=== PATIENT | male | born 1970 | race Two or more races ===

== ENCOUNTER 2024-07-28 17:49 | Inpatient (IN) | payer MEDICAID, SELFPAY ==
[2024-07-28 17:50] VITALS: BMI 26.1
--- NOTE | 2024-07-28 18:28 | EKG_ITS ---
[facility] Test Date: 2024-07-28 Pat Name: JOSE ARRIAZA Department: Room: - Gender: Male Health Insurance Assessor: : 1970 Requested By: Romel Andrea Order Number: [id number] Reading MD: Romel Andrea Measurements Intervals Paia Rate: 81 P: 41 SC: 143 QRS: 26 QRSD: 84 T: 39 QT: 347 QTc: 404 Interpretive Statements SINUS RHYTHM No previous ECG available for comparison /store/S0/[id number]/[id number].pdf
[2024-07-28 18:35] VITALS: BP 146/90; PULSE 73; RESP 16; TEMP 36.6; O2SAT 98
--- NOTE | 2024-07-28 19:06 | XR_ITS ---
Examination: CT brain head without contrast. 2-D sagittal coronal reconstructions Date and time of exam:July 28, 2024 1908 hrs. Indications: Stroke alert, onset focal neurologic deficit left arm numbness and dizziness beginning 1800 hrs. CTDI: vol (mGy):53 DLP: (mGycm):1054 Technique: Multiple CT axial sections of the brain have been obtained, 5 mm slice thickness. Contrast has not been administered. 2-D sagittal, coronal reconstructions have been obtained Low dose protocols were performed. One or more of the following dose reduction techniques were used; automated exposure control, adjustment of the mA and/or KV according to patient size, use of iterative reconstruction technique. Findings: No significant ventricular enlargement. Intra-axial or extra-axial hemorrhage density is not seen. No mass effect or midline shift Basal cisterns are not remarkable. Fourth ventricle is midline. Cranial vault intact. Impression: Negative for acute hemorrhage, mass effect or midline shift Brain MRI follow-up would best assess for demyelinating disease, acute ischemic change
--- NOTE | 2024-07-28 19:07 | PD.EDRME ---
Rapid Medical Screening Exam [facility] [place] Arrival date/time: 07/28/24 17:49 53M with history of DM and HLD, as well as possible anxiety and TIA presents to ED with 1 hour of L upper extremity numbness as well as some some lower extremity weakness and blurry vision. Patient's also states he's been walking to one side. Chief Complaint: Neuro Symptoms/Deficit Vital signs: Vital Signs Temperature 98 F 07/28/24 18:35 Pulse Rate 73 07/28/24 18:35 Respiratory Rate 16 07/28/24 18:35 Blood Pressure 146/90 H 07/28/24 18:35 Pulse Oximetry (%) 98 07/28/24 18:35 Oxygen Delivery Method Room Air 07/28/24 18:35
--- NOTE | 2024-07-28 19:11 | PC.NURSE ---
nayan consult case # [id number]
[2024-07-28 19:38] VITALS: PULSE 79
--- NOTE | 2024-07-28 19:42 | ESCONSULT_ITS ---
Tele Neuro Consultation Consultation Date 07/28/24 Most Recent Vital Signs Last Vital Signs Temp 98 F 07/28/24 18:35 Pulse 79 07/28/24 19:38 Resp 16 07/28/24 18:35 BP 146/90 H 07/28/24 18:35 Pulse Ox 98 07/28/24 18:35 O2 Del Method Room Air 07/28/24 18:35 Consultation Narrative [facility] Tele[facility]urology Consult [facility] Patient Name:???oliva becker Date of :???1970 Date of Service:???07/28/2024 19:10:46 Diagnosis:?G45.9 - Transient cerebral ischemic attack, unspecified ?R51.9 - Headache, unspecified Impression: ?Mr. Becker had left arm numbness with vascular risk factors of DM and HLD. This is the most concerning symptom for TIA. He has vertigo symptoms and headache in the setting of ear infection/pain, which are likely related. I recommend a MRI brain to further evaluate posterior circulation ischemia possibility for vertigo and transient left arm numbness. He should start aspirin 325mg now, lipid panel, A1C. Our recommendations are outlined below. Recommendations: ? Stroke/Telemetry Floor ? Neuro Checks ? Bedside Swallow Eval ? DVT Prophylaxis ? IV Fluids, Normal Saline ? Head of Bed 30 Degrees ? Euglycemia and Avoid Hyperthermia (PRN Acetaminophen) ? Initiate or continue Aspirin 325 MG daily ? Antihypertensives PRN if Blood pressure is greater than 220/120 or there is a concern for End organ damage/contraindications for permissive HTN. If blood pressure is greater than 220/120 give labetalol PO or IV or Vasotec IV with a goal of 15% reduction in BP during the first 24 hours. Sign Out: ? Discussed with Emergency Department Provider Advanced Imaging: Advanced Imaging Deferred because: Non-disabling symptoms as verified by the patient; no cortical signs so not consistent with LVO Metrics: Last Known Well: 07/28/2024 15:30:00 Dispatch Time: 07/28/2024 19:10:46 Arrival Time: 07/28/2024 19:05:00 Initial Response Time: 07/28/2024 19:12:18Symptoms: dizzy. Initial patient interaction: 07/28/2024 19:18:12 NIHSS Assessment Completed: 07/28/2024 19:24:20Patient is not a candidate for Thrombolytic. Thrombolytic Medical Decision: 07/28/2024 19:24:21Patient was not deemed candidate for Thrombolytic because of following reasons: Resolved symptoms . I personally Reviewed the CT Head and it Showed no ICH Primary Provider Notified of Diagnostic Impression and Management Plan on: 07/28/2024 19:36:25 History of Present Illness:Patient is a 53 year old Male. Patient was brought by private transportation with symptoms of dizzy. 53 year old man who presents with sudden onset dizziness with recent left ear infection taking ear drops. He then noticed vertex head pain, SOB and left arm numbness. He is not having weakness, speech or language difficulty or vision loss. He takes medications for DM, HLD. Past Medical History: ?Diabetes Mellitus ?Hyperlipidemia Medications: No Anticoagulant use? No Antiplatelet use Reviewed EMR for current medications Allergies:? NKDA Social History: Patient Is: Smoking: No Family History: There is no family history of premature cerebrovascular disease pertinent to this consultation ROS : 14 Points Review of Systems was performed and was negative except mentioned in HPI. Past Surgical History: There Is No Surgical History Contributory To Today?s Visit Examination: BP(146/90),?Pulse(73),?Blood Glucose(120) 1A: Level of Consciousness - Alert; keenly responsive?+ 0 1B: Ask Month and Age - Both Questions Right?+ 0 1C: Blink Eyes & Squeeze Hands - Performs Both Tasks?+ 0 2: Test Horizontal Extraocular Movements - Normal?+ 0 3: Test Visual Sy - No Visual Loss?+ 0 4: Test Facial Palsy (Use Grimace if Obtunded) - Normal symmetry?+ 0 5A: Test Left Arm Motor Drift - No Drift for 10 Seconds?+ 0 5B: Test Right Arm Motor Drift - No Drift for 10 Seconds?+ 0 6A: Test Left Leg Motor Drift - No Drift for 5 Seconds?+ 0 6B: Test Right Leg Motor Drift - No Drift for 5 Seconds?+ 0 7: Test Limb Ataxia (FNF/Heel-Villatoro) - No Ataxia?+ 0 8: Test Sensation - Normal; No sensory loss?+ 0 9: Test Language/Aphasia - Normal; No aphasia?+ 0 10: Test Dysarthria - Normal?+ 0 11: Test Extinction/Inattention - No abnormality?+ 0 NIHSS Score:?0 Pre-Morbid Modified Jyoti Scale:0 Points = No symptoms at all Spoke with :?Dr Andrea This consult was conducted in real time using interactive audio and video technology. Patient was informed of the technology being used for this visit and agreed to proceed. Patient located in hospital and provider located at home/office setting. Patient is being evaluated for possible acute neurologic impairment and high probability of imminent or life-threatening deterioration. I spent total of 30 minutes providing care to this patient, including time for face to face visit via telemedicine, review of medical records, imaging studies and discussion of findings with providers, the patient and/or family. Dr Aniceto Garcia [facility] For Inpatient follow-up with [facility] physician please call [facility] at [phone]. As we are not an outpatient service for any post hospital discharge needs please contact the hospital for assistance. If you have any questions for the [facility] physicians or need to reconsult for clinical or diagnostic changes please contact us via [facility] at . [facility] Patient Name:???oliva becker Date of :???1970 Date of Service:???07/28/2024 19:10:46 Diagnosis:?G45.9 - Transient cerebral ischemic attack, unspecified ?R51.9 - Headache, unspecified Impression: ?Mr. Becker had left arm numbness with vascular risk factors of DM and HLD. This is the most concerning symptom for TIA. He has vertigo symptoms and headache in the setting of ear infection/pain, which are likely related. I recommend a MRI brain to further evaluate posterior circulation ischemia possibility for vertigo and transient left arm numbness. He should start aspirin 325mg now, lipid panel, A1C. Our recommendations are outlined below. Recommendations: ? Stroke/Telemetry Floor ? Neuro Checks ? Bedside Swallow Eval ? DVT Prophylaxis ? IV Fluids, Normal Saline ? Head of Bed 30 Degrees ? Euglycemia and Avoid Hyperthermia (PRN Acetaminophen) ? Initiate or continue Aspirin 325 MG daily ? Antihypertensives PRN if Blood pressure is greater than 220/120 or there is a concern for End organ damage/contraindications for permissive HTN. If blood pressure is greater than 220/120 give labetalol PO or IV or Vasotec IV with a goal of 15% reduction in BP during the first 24 hours. Sign Out: ? Discussed with Emergency Department Provider Advanced Imaging: Advanced Imaging Deferred because: Non-disabling symptoms as verified by the patient; no cortical signs so not consistent with LVO Metrics: Last Known Well: 07/28/2024 15:30:00 Dispatch Time: 07/28/2024 19:10:46 Arrival Time: 07/28/2024 19:05:00 Initial Response Time: 07/28/2024 19:12:18Symptoms: dizzy. Initial patient interaction: 07/28/2024 19:18:12 NIHSS Assessment Completed: 07/28/2024 19:24:20Patient is not a candidate for Thrombolytic. Thrombolytic Medical Decision: 07/28/2024 19:24:21Patient was not deemed candidate for Thrombolytic because of following reasons: Resolved symptoms . I personally Reviewed the CT Head and it Showed no ICH Primary Provider Notified of Diagnostic Impression and Management Plan on: 07/28/2024 19:36:25 History of Present Illness:Patient is a 53 year old Male. Patient was brought by private transportation with symptoms of dizzy. 53 year old man who presents with sudden onset dizziness with recent left ear infection taking ear drops. He then noticed vertex head pain, SOB and left arm numbness. He is not having weakness, speech or language difficulty or vision loss. He takes medications for DM, HLD. Past Medical History: ?Diabetes Mellitus ?Hyperlipidemia Medications: No Anticoagulant use? No Antiplatelet use Reviewed EMR for current medications Allergies:? NKDA Social History: Patient Is: Smoking: No Family History: There is no family history of premature cerebrovascular disease pertinent to this consultation ROS : 14 Points Review of Systems was performed and was negative except mentioned in HPI. Past Surgical History: There Is No Surgical History Contributory To Today?s Visit Examination: BP(146/90),?Pulse(73),?Blood Glucose(120) 1A: Level of Consciousness - Alert; keenly responsive?+ 0 1B: Ask Month and Age - Both Questions Right?+ 0 1C: Blink Eyes & Squeeze Hands - Performs Both Tasks?+ 0 2: Test Horizontal Extraocular Movements - Normal?+ 0 3: Test Visual Sy - No Visual Loss?+ 0 4: Test Facial Palsy (Use Grimace if Obtunded) - Normal symmetry?+ 0 5A: Test Left Arm Motor Drift - No Drift for 10 Seconds?+ 0 5B: Test Right Arm Motor Drift - No Drift for 10 Seconds?+ 0 6A: Test Left Leg Motor Drift - No Drift for 5 Seconds?+ 0 6B: Test Right Leg Motor Drift - No Drift for 5 Seconds?+ 0 7: Test Limb Ataxia (FNF/Heel-Villatoro) - No Ataxia?+ 0 8: Test Sensation - Normal; No sensory loss?+ 0 9: Test Language/Aphasia - Normal; No aphasia?+ 0 10: Test Dysarthria - Normal?+ 0 11: Test Extinction/Inattention - No abnormality?+ 0 NIHSS Score:?0 Pre-Morbid Modified Arenac Scale:0 Points = No symptoms at all Spoke with :?Dr Andrea This consult was conducted in real time using interactive audio and video technology. Patient was informed of the technology being used for this visit and agreed to proceed. Patient located in hospital and provider located at home/office setting. Patient is being evaluated for possible acute neurologic impairment and high probability of imminent or life-threatening deterioration. I spent total of 30 minutes providing care to this patient, including time for face to face visit via telemedicine, review of medical records, imaging studies and discussion of findings with providers, the patient and/or family. Dr Aniceto Garcia [facility] For Inpatient follow-up with [facility] physician please call [facility] at . As we are not an outpatient service for any post hospital discharge needs please contact the hospital for assistance. If you have any questions for the [facility] physicians or need to reconsult for clinical or diagnostic changes please contact us via [facility] at .
[2024-07-28 19:45] VITALS: BP 135/97; PULSE 75; RESP 20; O2SAT 97
[2024-07-28 19:46] LABS: Basophils % (Auto) 0 % (0-2.5); Eosinophils # (Auto) 0.1 Thou/mm3 (0.0-0.5); Eosinophils % (Auto) 1 % (0-10); Hematocrit 43.8 % (41.0-53.0); Hemoglobin 15.3 g/dL (13.5-16.0); Immature Granulocytes % (Auto) 0 % (0-0); Immature Granulocytes Auto 0.02 Thou/mm3 (0.00-0.00); Lymphocytes # (Auto) 1.5 Thou/mm3 (1.0-4.8); Lymphocytes % (Auto) 18 % (10-50); Mean Corpuscular HGB Conc 34.9 g/dl (31.0-37.0); Mean Corpuscular Hemoglobin 31.8 pg (25.0-35.0); Mean Corpuscular Volume 91 fL (80-100); Monocytes # (Auto) 0.4 Thou/mm3 (0.0-0.8); Monocytes % (Auto) 5 % (0-12); Neutrophils # (Auto) 6.1 Thou/mm3 (1.8-7.7); Neutrophils % (Auto) 76 % (37-80); Nucleated Red Blood Cell % 0 /100 WBC (0); Platelet Count 277 Thou/mm3 (140-440); RDW Standard Deviation 43.5 fL (35.1-43.9); Red Blood Count 4.81 Miln/mm3 (4.50-5.90); White Blood Count 8.1 Thou/mm3 (3.8-10.6)
[2024-07-28] MEDS: Aspirin 325 MG TABLET PO (19:52)
--- NOTE | 2024-07-28 19:55 | PD.EDNEURO ---
Neuro Symptoms Deficit-RME/HPI General Chief Complaint: Neuro Symptoms/Deficit Stated Complaint: LEFT ARM NUMBNESS, DIZZINESS, BLURRY VISION X1HR. Time Seen by Provider: 07/28/24 19:37 Arrival date/time: 07/28/24 17:49 RME / HPI RME / HPI Narrative: 07/28/24 17:49 A 53 M patient known case DM and HLD and reportedly currently being treated with Lt ear infection came to the hospital due to dizziness and left arm and abnormal gait for the past hour. patient also reported headache, blurry vision, and chills. denied any weakness, slurred speech or difficulty swallowing or vomiting Related Data Allergies Allergy/AdvReac Type Severity Reaction Status Date / Time No Known Allergies Allergy Unverified 07/28/24 20:35 ED Exam Narrative Physical exam: GEN: AOx3, able to speak full sentences HEENT: NC/AC, vesicular changes on the LT tympanic membrane, PERRLA, oral mucosa moist, neck supple CVS: RRR, S1-S2 present, no murmurs appreciated RESP: CTAB GI: soft,non distended, non tender, NBS MSK: able to move all 4 limbs, no lower extremity edema SKIN: warm and dry MEDICAL EDUCATION MANAGER: CN II-XII and Sensation grossly intact. Course Quality Measures none Orders Category Date Time Status Admit to Inpatient Status Routine Admission 07/28/24 20:33 Active Patient Condition Routine Admission 07/28/24 20:33 Ordered Activity as Tolerated Routine Care 07/28/24 20:34 Ordered Bedside Blood Glucose ACHS Care 07/28/24 20:37 Active Blood glucose [Bedside Blood Glucose] NOW Care 07/28/24 18:28 Active Adapted Physical Education Specialist NOW Care 07/28/24 19:06 Active Continuous Pulse Oximetry NOW Care 07/28/24 19:06 Completed EKG (ED ONLY) *Do not use* NOW Care 07/28/24 18:28 Completed Insert IV NOW Care 07/28/24 19:06 Active MRI Screening NOW Care 07/28/24 20:04 Active NIH Stroke Scale now Care 07/28/24 19:06 Active NPO NOW Care 07/28/24 19:06 Active Neuro Check Q4H Care 07/28/24 20:33 Completed Notify provider NEEDED Care 07/28/24 20:33 Active Nurse Swallow Screen x1 Care 07/28/24 19:06 Active Swallow Evaluation NEEDED Care 07/28/24 20:35 Active Consult to Neurology / Tele-Neurology Routine Cons 07/28/24 19:06 Active CA echo doppler complete Routine Exams 07/28/24 20:[address] angio stroke protocol Stat Exams 07/28/24 19:[address] stroke protocol Stat Exams 07/28/24 19:06 Completed EKG (ED Only) Stat Exams 07/28/24 18:28 Draft MR stroke protocol Stat Exams 07/28/24 Ordered US carotid duplex Stat Exams 07/28/24 20:48 Ordered A1C [Glycohemoglobin w (eAG)] AM DRAW Lab 07/29/24 05:00 Ordered Alcohol, Blood Medical Stat Lab 07/28/24 19:13 Completed Basic Metabolic Panel AM DRAW Lab 07/29/24 05:00 Ordered Basic Metabolic Panel AM DRAW Lab 07/30/24 05:00 Ordered Basic Metabolic Panel AM DRAW Lab 07/31/24 05:00 Ordered CBC AM DRAW Lab 07/29/24 05:00 Ordered CBC AM DRAW Lab 07/30/24 05:00 Ordered CBC AM DRAW Lab 07/31/24 05:00 Ordered CBC Stat Lab 07/28/24 19:13 Completed Comprehensive Metabolic Panel Stat Lab 07/28/24 19:13 Completed Drug Screen,Urine Stat Lab 07/28/24 19:54 Completed Lipid Panel AM DRAW Lab 07/29/24 05:00 Ordered Magnesium Stat Lab 07/28/24 19:13 Completed Partial Thromboplastin Time Stat Lab 07/28/24 19:13 Completed Prothrombin Time with INR Stat Lab 07/28/24 19:13 Completed Troponin I Stat Lab 07/28/24 19:13 Completed Urinalysis Stat Lab 07/28/24 19:54 Completed Urine Culture Stat Lab 07/28/24 19:54 Received Aspirin Med 07/29/24 09:00 Active 325 mg PO QDAY Aspirin Med 07/28/24 19:41 Discontinued 325 mg PO X1 ONE Atorvastatin Calcium [Lipitor] Med 07/28/24 21:00 Active 40 mg PO HS Ciprofloxacin/Dexam Otic Stephanie [Ciprodex Otic Stephanie] Med 07/28/24 21:00 Active 3 drop LEFT EAR BID Dextrose 50% Syr [D50w Syringe Abboject] Med 07/28/24 20:37 Active 25 ml IV Q15MIN PRN Dextrose 50% Syr [D50w Syringe Abboject] Med 07/28/24 20:37 Active 50 ml IV Q15MIN PRN Enoxaparin [Lovenox] Med 07/29/24 09:00 Active 40 mg SC QDAY Glucagon Inj Med 07/28/24 20:37 Active 1 mg IM Q15MIN PRN Insulin Regular Med 07/28/24 21:00 Active See Protocol SC ACHS Code Status Routine Oth 07/28/24 20:33 Ordered Oxygen Delivery NOW RT 07/28/24 19:06 Completed Vital Signs Vital signs: Vital Signs Temperature 98 F 07/28/24 18:35 Pulse Rate 73 07/28/24 18:35 Respiratory Rate 16 07/28/24 18:35 Blood Pressure 146/90 H 07/28/24 18:35 Pulse Oximetry (%) 98 07/28/24 18:35 Oxygen Delivery Method Room Air 07/28/24 18:35 Neuro Symptoms / Deficit MDM Narrative MDM Narrative:: Tele Patient presented with dizziness, Lt arm numbness and blurry vision . Tele neurologist recommended to admit for stroke work up. CT brain was negative for acute hemorrhage, mass effect or midline shift. Patient data External records reviewed:: [facility] previous records Clinical information provided by:: patient Social determinants that could affect healthcare access:: none Patient has the following chronic illnesses:: DM HLD How is presenting disease/condition affected by chronic disease/condition?: exacerbated by Evaluation data The following diagnostics were reviewed and interpreted by me:: lab results, radiology exam(s) and EKG tracing(s) Lab and/or radiology exams considered but not ordered:: None Interpretation Summary: Stroke Sx vs Middle ear infection Medications / Prescriptions Medications or Prescriptions considered but not ordered:: none Medication administrations:: Medication Administration History Aspirin (Aspirin 325 Mg Tablet) 325 mg PO QDAY BATSHEVA Stop: 08/28/24 08:59 Atorvastatin Calcium (Atorvastatin Calcium 20 Mg Tablet) 40 mg PO HS BATSHEVA Stop: 08/27/24 20:59 Ciprofloxacin/Dexamethasone (Ciprofloxacin/Dexam Otic Stephanie 7.5 Ml Btl) 3 drop LEFT EAR BID BATSHEVA Stop: 08/27/24 20:59 Dextrose (Dextrose 50%-Water Inj 50 Ml Syringe) 25 ml IV Q15MIN PRN PRN Reason: BG 50-70 responsive npo pt Stop: 08/27/24 20:36 Dextrose (Dextrose 50%-Water Inj 50 Ml Syringe) 50 ml IV Q15MIN PRN PRN Reason: BG <50 OR BG <70 & pt unresponsive Stop: 08/27/24 20:36 Enoxaparin Sodium (Enoxaparin Sod Inj 40 Mg/0.4 Ml Syringe) 40 mg SC QDAY BATSHEVA Stop: 08/12/24 08:59 Glucagon (Glucagon Inj 1 Mg Vial) 1 mg IM Q15MIN PRN PRN Reason: BG <70, and no IV access Insulin Human Regular (Insulin Hum Regular 1 Unit/0.01 Ml (Per Unit)) 0 unit SC ACHS BATSHEVA; Protocol Stop: 08/27/24 20:59 Last Admin: 07/28/24 21:14 Dose: Not Given Documented By: KENZIE Non-Admin Reason: Glucose, LOW Discontinued Medications Aspirin (Aspirin 325 Mg Tablet) 325 mg PO X1 ONE Stop: 07/28/24 19:42 Last Admin: 07/28/24 19:52 Dose: 325 mg Documented By: KENZIE as above Consultations Consultation(s) initiated? (list below): Yes Consultation #1 (Physician, Specialty, Details): Tele neurology Hospitalist Dr Escalera Diagnosis Neuro Differential Diagnosis: transient cerebral ischemia and other (middle ear infection) Most likely diagnosis given after review of the tests above:: Stroke Inner ear infection Admission Indicated Admission indicated?: indicated Explain why admission is indicated or not indicated:: Stroke w/u Admission Request Was there a request for admission?: Yes Admission Attestation Admission request attestation: Discussed case with [Dr Escalera] from Hospitalist service regarding admission. Discussed patients ED course, exam findings, labs, and radiology results. The Hospitalist [agrees,declines] to accept the patient for admission. Disposition Plan Disposition Plan: Admit Discharge Plan Problem List Clinical Impression: Cerebrovascular accident Patient/Caregiver Discharge Instructions Print Language: English
[2024-07-28 19:57] LABS: Collection Type, Urine Clean Catch; RBC,Urine 0 /hpf (0-3)
[2024-07-28 20:15] LABS: Partial Thromboplastin Time 24.5 Seconds (22.0-36.0); Prothrombin Time 10.7 Seconds (9.0-12.2)
[2024-07-28 20:16] LABS: Bilirubin,Urine Negative (Negative); Blood,Urine Negative (Negative); Clarity,Urine Clear (Clear/Hazy); Color,Urine Colorless (Lt Yel-Yel); Glucose, Urine 4+ (Negative); Ketones,Urine Negative (Negative); Leukocyte Esterase,Urine Negative (Negative); Nitrite,Urine Negative (Negative); Protein,Urine Negative (Neg - Trace); Specific Gravity,Urine 1.003 (1.001-1.035); Squamous Epithelial Cell,Urine < 1 /hpf (0-5); Urobilinogen,Urine Negative mg/dL (0.0-1.0); WBC,Urine < 1 /hpf (0-5)
[2024-07-28 20:22] LABS: Amphetamine/Methamp Scrn,U Negative (Negative); Barbiturate Screen,Urine Negative (Negative); Benzoylecgonine Screen, Ur Negative (Negative); Fentanyl Screen,Urine Negative (Negative); Opiate Screen,Urine Negative (Negative); THC Screen,Urine Negative (Negative)
[2024-07-28 20:30] LABS: Alanine Aminotransferase 23 U/L (10-49); Albumin, Serum 4.9 gm/dL (3.5-5.0); Albumin/Globulin Ratio 1.8 (1.2-2.2); Alcohol, Blood Medical < 3.0 mg/dL (0-10.0); Alkaline Phosphatase 85 U/L (46-116); Anion Gap 6 (7-16); Aspartate Amino Transferase 21 U/L (0-34); BUN/Creatinine Ratio 16 Ratio (12-20); Bilirubin,Total 0.5 mg/dL (0.3-1.2); Blood Urea Nitrogen 13 mg/dL (9-23); Calcium 9.7 mg/dL (8.3-10.6); Calcium (Corrected) 9.7 mg/dL (8.5-10.1); Carbon Dioxide 26.2 mMol/L (20.0-31.0); Chloride 104 mMol/L (98-107); Creatinine (Component) 0.8 mg/dL (0.6-1.3); Globulin 2.8 gm/dL (2.3-3.5); Glucose 126 mg/dL (74-106); Magnesium 2.2 mg/dL (1.6-2.6); Osmolality,Calculated 274 (275-295); Sodium 136 mMol/L (136-145); Total Protein 7.7 gm/dL (5.7-8.2); Troponin I < 0.002 ng/mL (0.0-0.045); eGFR > 60 See Note
[2024-07-28 20:41] LABS: Benzodiazepines Screen,Urine Negative (Negative)
[2024-07-28 20:46] VITALS: BP 133/88; PULSE 67; RESP 20; O2SAT 98
--- NOTE | 2024-07-28 20:46 | ECHO_ITS ---
Transthoracic Echo Report Ht (in): 65 Wt (lb): 157 Exam Location: Echo Lab Status: Preadmit Desizing Machine Operator Head End: Halina Frey Indications: Procedure Performed: BP: 135 / 85 HR: 77 Rhythm: Sinus Technical Quality: Fair Contrast: Agitated Saline Total Dose (mL): MEASUREMENTS (Male / Female) Normal Values 2D ECHO LV Diastolic Diameter PLAX 4.3 cm 4.2 - 5.9 / 3.9 - 5.3 cm LV Systolic Diameter PLAX 3.0 cm IVS Diastolic Thickness 0.9 cm 0.6 - 1.0 / 0.6 - 0.9 cm LVPW Diastolic Thickness 0.8 cm 0.6 - 1.0 / 0.6 - 0.9 cm LV Relative Wall Thickness 0.4 LVOT Diameter 1.8 cm LA Volume Index 12.8 cm?/m? 16 - 28 cm?/m? Ascending Aorta Diameter 2.7 cm M-MODE Aortic Root Diameter MM 3.0 cm LA Systolic Diameter MM 3.0 cm LA Ao Ratio MM 1.0 AV Cusp Separation MM 2.0 cm DOPPLER AV Peak Velocity 118.0 cm/s AV Peak Gradient 5.6 mmHg AV Mean Gradient 3.0 mmHg AV Velocity Time Integral 21.9 cm LVOT Peak Velocity 108.0 cm/s LVOT Peak Gradient 4.7 mmHg LVOT Velocity Time Integral 19.3 cm LVOT Cardiac Index 2076.3 cm?/min?m? AV Area Cont Eq vti 2.2 cm? AV Area Cont Eq pk 2.3 cm? MV Peak Velocity 73.2 cm/s MV Peak Gradient 2.1 mmHg MV Mean Velocity 50.6 cm/s MV Mean Gradient 1.0 mmHg MV Area PHT 4.2 cm? MR Peak Velocity 209.0 cm/s MR Peak Gradient 17.5 mmHg Mitral E Point Velocity 60.6 cm/s Mitral A Point Velocity 73.7 cm/s Mitral E to A Ratio 0.8 LV E' Lateral Velocity 10.6 cm/s Mitral E to LV E' Lateral Ratio 5.7 LV E' Septal Velocity 7.6 cm/s Mitral E to LV E' Septal Ratio 8.0 FINDINGS Left Ventricle Normal left ventricular size, wall thickness, systolic function with no obvious regional wall motion abnormalities. The ejection fraction is visually estimated at 60-65%. Right Ventricle The right ventricle is normal in size and systolic function. Left Atrium The left atrium is normal by two-dimensional, color flow and Doppler imaging with no structural abnormalities, no thrombus formation present. Right Atrium The right atrium is normal by two-dimensional imaging, color flow and Doppler imaging with no struct ural abnormalities, no thrombus formation present. Atrial Septum The interatrial septum appears normal with no evidence of a shunt. Aorta The aorta is normal by two-dimensional, color flow and Doppler interrogation. Mitral Valve The mitral valve is normal by two-dimensional, color flow and Doppler interrogation. There is trace mitral valve regurgitation. Aortic Valve The aortic valve is trileaflet and normal by two-dimensional, color flow and Doppler interrogation. There is trace aortic valve regurgitation. Tricuspid Valve The tricuspid valve is normal by two-dimensional, color flow and Doppler interrogation. There is tra ce tricuspid valve regurgitation. Pulmonic Valve The pulmonic valve is normal by two-dimensional, color flow and Doppler interrogation. There is no significant pulmonic valve regurgitation. Vessels The pulmonary artery appears normal. The inferior vena cava pulmonary and hepatic veins appear sharon l. Pericardium The pericardium is normal by two-dimensional imaging. There is no significant pericardial effusion. CONCLUSIONS Negative bubble study. No evidence of PFO or ASD. Normal LV size and function. Estimated EF 60-65% Normal RV size and function. Trace MR, TR, AI. Suresh Miller (Electronically Signed) Final Date: 30 July 2024 13:28
--- NOTE | 2024-07-28 20:48 | XR_ITS ---
Examination: Carotid arterial duplex scan, ultrasound. Date and time of exam: July 28, 2024 2109 hrs. Indications: Transient ischemic attacks, right arm numbness dizziness blurred vision beginning 1600 hrs. Today Technique: Multiple sonographic images have been obtained of the carotid arteries and vertebral arteries, B-mode/grayscale imaging and Doppler spectral analysis and color flow Peak systolic and diastolic velocities have been recorded. Systolic diastolic ratios have been calculated. Findings: Right peak systolic velocities: Distal internal carotid artery peak systolic velocity is 0.7 M/sec Proximal internal carotid artery peak systolic velocity is 1.1 M/sec Carotid bifurcation peak systolic velocity is 0.7 M/sec External carotid artery peak systolic velocity is 1.4 M/sec Vertebral artery flow is antegrade. Left peak systolic velocities: Distal internal carotid artery peak systolic velocity is 0.5 M/sec Proximal internal carotid artery peak systolic velocity is 0.4 M/sec Carotid bifurcation peak systolic velocity is 0.8 M/sec External carotid artery peak systolic velocity is 0.7 M/sec Vertebral artery flow is antegrade Doppler waveform analysis demonstrates antegrade Impression: Right internal carotid artery demonstrates 0-10% stenosis. Left internal carotid artery demonstrates 0-10% stenosis.
--- NOTE | 2024-07-28 20:52 | PD.RESHP ---
Documentation for date of: 07/28/24 [facility] History of Present Illness History of present illness: Benji Becker is a 53-year-old male with a past medical history of diabetes and hyperlipidemia who presents with left upper extremity pain and numbness that started on 07/28 at approximately 3:30 PM. noted patient to have an abnormal gait when getting out of the car as well and along with left upper extremity symptoms, prompted visit to the ED. Stroke alert was called, and per tele-neurology, NIHSS 0 and modified [place] 0. Given resolution of symptoms, patient not candidate for thrombolytics and was given loading dose of aspirin [address] head negative for acute hemorrhage and MRI brain ordered for further evaluation. Of note, patient has been taking ear drops for a left ear infection, but per evaluation ear canals clear on examination. ED course: BP 146/90, otherwise vitals stable CBC and CMP unremarkable, UA negative, U-tox negative CT head negative for acute hemorrhage, EKG showed sinus rhythm, US carotid: 0-10% stenosis bilaterally PMHx: Diabetes, hyperlipidemia Medications: Patient cannot recall names of medications FHx: Stroke in mother SHx: No alcohol, cigarettes, illicit drug use Review of Systems Review of Systems Systems Reviewed: All systems reviewed, normal except as documented Exam Vital Signs Temp Pulse Resp BP Pulse Ox O2 Del Method 98 F 67 20 133/88 H 98 Room Air 07/28/24 18:35 07/28/24 20:46 07/28/24 20:46 07/28/24 20:46 07/28/24 20:46 07/28/24 20:46 Narrative Exam General: AOx3, no acute distress, able to speak full sentences. HEENT: NC/AT, mucous membranes moist, bilateral sclera anicteric. Cardiovascular: Regular rate and rhythm, S1/S2 present, no murmurs appreciated. Pulmonary: Clear to auscultation bilaterally, no rales/rhonchi/wheezes. Abdominal: Soft, non-tender, non-distended, no rebound/guarding, normal bowel sounds present. Musculoskeletal: Normal ROM, no peripheral edema. Skin: Warm and dry, intact, no rashes. Neuro: CN II-XII intact, no focal deficits. Results: Labs 07/28/24 19:13 07/28/24 19:13 Labs: Short CBC 07/28/24 Range/Units 19:13 WBC 8.1 (3.8-10.6) Thou/mm3 Hgb 15.3 (13.5-16.0) g/dL Hct 43.8 (41.0-53.0) % Plt Count 277 (140-440) Thou/mm3 BMP 07/28/24 19:13 Sodium 136 Potassium 4.0 Chloride 104 Carbon Dioxide 26.2 BUN 13 Creatinine 0.8 Glucose 126 H Calcium 9.7 Cardiac Enzymes 07/28/24 Range/Units 19:13 Troponin I < 0.002 (0.0-0.045) ng/mL Liver Function 07/28/24 Range/Units 19:13 Total Bilirubin 0.5 (0.3-1.2) mg/dL AST 21 (0-34) U/L ALT 23 (10-49) U/L Alkaline Phosphatase 85 (46-116) U/L Albumin 4.9 (3.5-5.0) gm/dL Urine 07/28/24 Range/Units 19:54 Urine Color Colorless A (Lt Yel-Yel) Urine Clarity Clear (Clear/Hazy) Urine pH 6.0 (5.0-7.0) Ur Specific [place] 1.003 (1.001-1.035) Urine Protein Negative (Neg - Trace) Urine Glucose (UA) 4+ A (Negative) Quality Measures Quality Measures VTE prophylaxis Medications Home Medications and Allergies Allergies Allergy/AdvReac Type Severity Reaction Status Date / Time No Known Allergies Allergy Unverified 07/28/24 20:35 Visit Medications Aspirin (Aspirin 325 Mg Tablet) 325 mg PO QDAY BATSHEVA Stop: 08/28/24 08:59 Atorvastatin Calcium (Atorvastatin Calcium 20 Mg Tablet) 40 mg PO HS BATSHEVA Stop: 08/27/24 20:59 Ciprofloxacin/Dexamethasone (Ciprofloxacin/Dexam Otic Stephanie 7.5 Ml Btl) 3 drop LEFT EAR BID BATSHEVA Stop: 08/27/24 20:59 Dextrose (Dextrose 50%-Water Inj 50 Ml Syringe) 25 ml IV Q15MIN PRN PRN Reason: BG 50-70 responsive npo pt Stop: 08/27/24 20:36 Dextrose (Dextrose 50%-Water Inj 50 Ml Syringe) 50 ml IV Q15MIN PRN PRN Reason: BG <50 OR BG <70 & pt unresponsive Stop: 08/27/24 20:36 Enoxaparin Sodium (Enoxaparin Sod Inj 40 Mg/0.4 Ml Syringe) 40 mg SC QDAY BATSHEVA Stop: 08/12/24 08:59 Glucagon (Glucagon Inj 1 Mg Vial) 1 mg IM Q15MIN PRN PRN Reason: BG <70, and no IV access Insulin Human Regular (Insulin Hum Regular 1 Unit/0.01 Ml (Per Unit)) 0 unit SC ACHS BATSHEVA; Protocol Stop: 08/27/24 20:59 Discontinued Medications Aspirin (Aspirin 325 Mg Tablet) 325 mg PO X1 ONE Stop: 07/28/24 19:42 Last Admin: 07/28/24 19:52 Dose: 325 mg Assessment & Plan Plan Benji Becker is a 53-year-old male with a past medical history of diabetes mellitus and hyperlipidemia who is admitted for CVA work-up. #CVA rule-out #TIA vs sroke Left upper extremity pain and numbness, abnormal gait in setting of previous left ear infection. CT head negative for acute hemorrhage, EKG sinus rhythm, US carotids 0-10% stenosis bilaterally. Teleneurology consulted in ED and Aspirin 325 mg x1 given. Passed nurse swallow eval, started on diet. -In-house neurology consulted, appreciate recommendations -Atorvastatin 40 mg daily -Aspirin 325 mg daily -Head of bed 30 degrees -Follow-up MRI, CTA, and echo -Follow-up A1c and lipid panel -Neuro checks q4h -Permissive HTN until 07/29 #Diabetes mellitus Fingerstick 116 -Follow-up A1c -SSI #Hyperlipidemia -Atorvastatin 40 mg PO HS #Otisis media, left ear Patient was being treated prior to ED arrival. Clear on evaluation and may discontinue as deemed appropriate. -Ciprofloxacin drops Hospital management: Disposition: 2-3 hospital nights Fluids: not indicated Diet: carbohydrate consistent low Lines: peripheral DVT prophylaxis: enoxaparin 40 mg daily CODE STATUS: full code ----- Plan discussed with attending physician Dr. Jw Morrell MD PGY-1 Internal Medicine Attending Provider Attestation/Addendum Pt was evaluated and plan formulated together with the housestaff team. I have reviewed the residents note above and agree with most of its content. Please refer to the residents note for additional details. CVA workup.
[2024-07-28] MEDS: ATORVASTATIN CALCIUM 20 MG TABLET 40 MG PO (21:30)
[2024-07-28] MEDS: CIPROFLOXACIN/DEXAM OTIC SOL 7.5 ML BTL 3 DROP LEFT EAR (21:30)
[2024-07-28 22:09] VITALS: BP 140/92; PULSE 71; RESP 20; O2SAT 97
[2024-07-29] VITALS: BP 126/85; PULSE 76; RESP 16; TEMP 36.4; O2SAT 94
--- NOTE | 2024-07-29 | XR_ITS ---
Examinations: MRI Brain without intravenous contrast. MRA brain without intravenous contrast. MRA carotids without intravenous contrast 3-D vascular reconstructions Date and time of exam: July 29, 2024 1247 hours INDICATIONS: Left upper extremity pain and numbness and unsteady gait beginning one day ago Technique: Multiple axial and sagittal images of the brain have been obtained MRA brain carotid images without contrast obtained, including 3-D postprocessing, vascular maximum intensity projection images Findings: Sell[place] is not enlarged. The optic chiasm and infundibular stalk are not remarkable. Prepontine and interpeduncular cisterns are not enlarged. No localized enlargement of the medulla or piyush. Fourth ventricle and cerebellar tonsils normal in position. Subacute hemorrhage is not seen. Fourth ventricle is midline. Mass in the cerebellopontine angle region is not evident. 7th and 8th nerve complexes exhibits symmetry. Globes are symmetrical with no retro-orbital mass. Increased white matter signal not seen Diffusion-weighted images demonstrate 3 mm focus restricted diffusion left frontal lobe diffusion with possible matching signal deficit on the ADC map Mass-effect upon the ventricular system is not identified. Probable sebaceous cyst in the left posterior parietal scalp MRA carotid images no carotid stenoses. MRA brain images no large vessel occlusions Impression: Diffusion-weighted images demonstrate subtle 3 mm focus restricted diffusion left frontal lobe, diffusion axial image 14, recommend neurology consultation and correlation with clinical findings as to the possibility of acute small infarct at this site
--- NOTE | 2024-07-29 | XR_ITS ---
Examinations: MRI Brain without intravenous contrast. Date and time of exam: July 29, 2024 1007 hours INDICATIONS: Left upper extremity pain and numbness and unsteady gait today Technique: Multiple axial and sagittal images of the brain have been obtained Only diffusion-weighted images could be obtained, patient could not complete the examination Findings: Severely limited study No foci of restricted diffusion on the diffusion-weighted images Ventricles are normal in size No mass effect upon the ventricular system Posterior left scalp lesion 13 mm which may represent sebaceous cyst IMPRESSION: Severely limited study No acute infarct depicted
[2024-07-29 04:00] VITALS: BP 135/85; PULSE 77; RESP 15; TEMP 36.7; O2SAT 95
[2024-07-29 05:35] LABS: Basophils % (Auto) 0 % (0-2.5); Eosinophils # (Auto) 0.1 Thou/mm3 (0.0-0.5); Eosinophils % (Auto) 2 % (0-10); Hemoglobin 15.6 g/dL (13.5-16.0); Immature Granulocytes % (Auto) 0 % (0-0); Immature Granulocytes Auto 0.02 Thou/mm3 (0.00-0.00); Lymphocytes # (Auto) 1.9 Thou/mm3 (1.0-4.8); Lymphocytes % (Auto) 29 % (10-50); Mean Corpuscular HGB Conc 34.7 g/dl (31.0-37.0); Mean Corpuscular Hemoglobin 31.6 pg (25.0-35.0); Mean Corpuscular Volume 91 fL (80-100); Monocytes # (Auto) 0.5 Thou/mm3 (0.0-0.8); Monocytes % (Auto) 8 % (0-12); Neutrophils # (Auto) 4.1 Thou/mm3 (1.8-7.7); Neutrophils % (Auto) 61 % (37-80); Nucleated Red Blood Cell % 0 /100 WBC (0); Platelet Count 267 Thou/mm3 (140-440); RDW Standard Deviation 43.3 fL (35.1-43.9); Red Blood Count 4.93 Miln/mm3 (4.50-5.90); White Blood Count 6.7 Thou/mm3 (3.8-10.6)
[2024-07-29 06:00] VITALS: BMI 26.1
[2024-07-29 06:15] LABS: Anion Gap 3 (7-16); BUN/Creatinine Ratio 12 Ratio (12-20); Blood Urea Nitrogen 11 mg/dL (9-23); Calcium 9.7 mg/dL (8.3-10.6); Carbon Dioxide 28.4 mMol/L (20.0-31.0); Cardiac Risk Estimate 4.5 RATIO (4.0-6.7); Chloride 106 mMol/L (98-107); Cholesterol 215 mg/dL (132-200); Creatinine (Component) 0.9 mg/dL (0.6-1.3); Estimated Creatinine Clearance 83.5 mL/min (>60); Glucose 103 mg/dL (74-106); HDL Cholesterol 48 mg/dL (40-60); LDL Cholesterol,Calculated 151 mg/dL (0-130); Osmolality,Calculated 273 (275-295); Potassium 4.4 mMol/L (3.4-5.1); Sodium 137 mMol/L (136-145); Triglycerides 80 mg/dL (30-150); eGFR > 60 See Note
[2024-07-29 06:24] LABS: Glucose Estimated Average 140 mg/dL (80-131); Hemoglobin A1C 6.5 % Hgb (4.8-6.0)
[2024-07-29 08:00] VITALS: BP 145/84; PULSE 89; PULSE 99; RESP 17; TEMP 36.3; O2SAT 97
[2024-07-29] MEDS: ENOXAPARIN SOD INJ 40 MG/0.4 ML SYRINGE SC (08:18)
[2024-07-29] MEDS: Aspirin 325 MG TABLET PO (08:18)
[2024-07-29] MEDS: CIPROFLOXACIN/DEXAM OTIC SOL 7.5 ML BTL 3 DROP LEFT EAR ×2 (08:18→20:04)
--- NOTE | 2024-07-29 09:11 | PC.SS ---
Patient Benji Santoro is a 53 Year old male admitted for CVA. SS met with patient at bedside to discuss discharge plan. Patient reports he lives at home with his and child Patient reports his , Brunilda Winchester is his surrogate decision maker [phone]. Patient reports he does not utilize any source of DME to assist with ambulation. 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 Choice of pharmacy is [facility]. Patient reports he does see a PCP in [facility] however is not aware of his name. At time of discharge patient will return back home. Family will provide transportation. Discharge Plan: home next of kin:
--- NOTE | 2024-07-29 10:31 | ESPR_ITS ---
<Statement entered by Johnathan Kraft MD - 07/29/24 18:20> Senior Resident Attestation: I supervised/discussed management plan with hospital internship physician Dr. Davis, and was involved in the care of this patient. I personally saw and examined the patient and discussed the assessment and plan with the entire medicine team, including my attending. I agree with the assessment and plan as documented. Patient's care was discussed with attending physician, Dr. Fraser. Johnathan Kraft MD PGY-2. Documentation for date of: 07/29/24 Subjective Subjective Interval history: Patient was seen at the bedside this morning. Patient stated that he has been having some pain in his left posterior scalp where he has a bulge and feeling of dizziness. This bulge has been there since his childhood. Patient stated that today he was also feeling some tingling sensation in his lower extremities and when he was taken to get his MRI he had difficulty breathing and cannot lay flat, this was most likely an anxiety attack as patient afterwards was okay and able to lay flat. We gave Ativan 0.5 x 1 so patient can have MRI done. MRI came back and did not show any acute infarct, but MRA did show a 3 mm restricted diffusion of the left frontal lobe. Teleneurology stated to wait for patient's echocardiogram and that if this was normal he could follow-up outpatient neurologist as they think MRI/MRA look okay. He has no other complaints at this time. Will start DAPT for 21 days and afterwards monotherapy with Plavix 75 mg as per tele-neuro recommendations. Exam Vital Signs Temp Pulse Resp BP Pulse Ox O2 Del Method 97.4 F 89 17 145/84 H 97 Room Air 07/29/24 08:00 07/29/24 08:00 07/29/24 08:00 07/29/24 08:00 07/29/24 08:00 07/29/24 04:00 Narrative Exam General: A/O x3, no acute distress, well-nourished, well-developed Eyes: PERRL, EOMI. Anicteric, vision grossly intact. Ears: No ear pain, no visible ear discharge, Hearing grossly intact. Nose: No nasal discharge. Mouth/Throat: Moist mucous membranes, no redness, no lesions. Neck: Neck supple, non-tender, no cervical lymphadenopathy. Lungs: Clear STACI to auscultation and percussion, No accessory muscle use. Cardio: Normal S1/S2, regular rhythm, no murmurs, no JVD Abdomen: Soft, non-tender, no palpable masses, peristalsis present, no guarding or rebound. Extremities: Symmetrical, no significant deformities, no peripheral edema , non-tender, peripheral pulses presents. Skin: No rashes, no lesions, warm to touch. Lump in L posterior head mildly tender Neuro: No focal neurological deficits. motor and sensory intact Psych: Cooperative, appropriate mood and effect. Objective Labs 07/30/24 04:41 07/30/24 04:41 Labs: Laboratory Results - last 24 hr 07/28/24 07/28/24 07/29/24 19:13 19:54 05:08 WBC 8.1 6.7 RBC 4.81 4.93 Hgb 15.3 15.6 Hct 43.8 45.0 MCV 91 91 MCH 31.8 31.6 MCHC 34.9 34.7 RDW Std Deviation 43.5 43.3 Plt Count 277 267 Neut % (Auto) 76 61 Lymph % (Auto) 18 29 [place] % (Auto) 5 8 Eos % (Auto) 1 2 Baso % (Auto) 0 0 Neut # (Auto) 6.1 4.1 Lymph # (Auto) 1.5 1.9 [place] # (Auto) 0.4 0.5 Eos # (Auto) 0.1 0.1 Baso # (Auto) 0.0 0.0 Immature Gran # (Auto) 0.02 H 0.02 H Absolute Nucleated RBC 0.00 0.00 Immature Gran % 0 0 Nucleated RBC % 0 0 PT 10.7 INR 1.0 APTT 24.5 Sodium 136 137 Potassium 4.0 4.4 Chloride 104 106 Carbon Dioxide 26.2 28.4 Anion Gap 6 L 3 L BUN 13 11 Creatinine 0.8 0.9 Estim Creat Clear Calc 94.0 83.5 eGFR > 60 > 60 BUN/Creatinine Ratio 16 12 Glucose [address] Glu mg/dL 140 H Hemoglobin A1c 6.5 H Calculated Osmolality 274 L 273 L Calcium 9.7 9.7 Corrected Calcium 9.7 Magnesium 2.2 Total Bilirubin 0.5 AST 21 ALT 23 Alkaline Phosphatase 85 Troponin I < 0.002 Total Protein 7.7 Albumin 4.9 Globulin 2.8 Albumin/Globulin Ratio 1.8 Triglycerides 80 Cholesterol 215 H LDL Cholesterol, Calc 151 H HDL Cholesterol 48 Cholesterol/HDL Ratio 4.5 Ur Collection Type Clean Catch Urine Color Colorless A Urine Clarity Clear Urine pH 6.0 Ur Specific [place] 1.003 Urine Protein Negative Urine Glucose (UA) 4+ A Urine Ketones Negative Urine Blood Negative Urine Nitrite Negative Urine Bilirubin Negative Urine Urobilinogen (Auto) Negative Ur Leukocyte Esterase Negative Urine RBC 0 Urine WBC < 1 Ur Squamous Epith Cells < 1 Urine Bacteria None Urine Opiates Screen Negative Urine Fentanyl Screen Negative Ur Barbiturates Screen Negative U Amphetamin/Meth Scrn Negative U Benzodiazepines Scrn Negative U Cocaine Metab Screen Negative U Marijuana (THC) Screen Negative Ethyl Alcohol < 3.0 Quality Measures Quality Measures VTE prophylaxis Assessment & Plan Assessment Current Active Medications: Generic Name Dose Route Start Last Admin Trade Name Freq PRN Reason Stop Dose Admin Aspirin 325 mg 07/29/24 09:00 07/29/24 08:18 Aspirin 325 Mg Tablet PO 08/28/24 08:59 325 mg QDAY BATSHEVA Administration Atorvastatin Calcium 80 mg 07/29/24 21:00 Atorvastatin Calcium 20 Mg Tablet PO 08/28/24 20:59 HS BATSHEVA Ciprofloxacin/Dexamethasone 3 drop 07/28/24 21:00 07/29/24 08:18 Ciprofloxacin/Dexam Otic Stephanie 7.5 Ml Btl LEFT EAR 08/27/24 20:59 3 drop BID BATSHEVA Administration Dextrose 25 ml 07/28/24 20:37 Dextrose 50%-Water Inj 50 Ml Syringe IV 08/27/24 20:36 Q15MIN PRN BG 50-70 responsive npo pt Dextrose 50 ml 07/28/24 20:37 Dextrose 50%-Water Inj 50 Ml Syringe IV 08/27/24 20:36 Q15MIN PRN BG <50 OR BG <70 & pt unresponsive Enoxaparin Sodium 40 mg 07/29/24 09:00 07/29/24 08:18 Enoxaparin Sod Inj 40 Mg/0.4 Ml Syringe SC 08/12/24 08:59 40 mg QDAY BATSHEVA Administration Glucagon 1 mg 07/28/24 20:37 Glucagon Inj 1 Mg Vial IM Q15MIN PRN BG <70, and no IV access Insulin Human Regular 0 unit 07/28/24 21:00 07/29/24 08:05 Insulin Hum Regular 1 Unit/0.01 Ml (Per Unit) SC 08/27/24 20:59 Not Given ACHS BATSHEVA Protocol Ondansetron HCl 4 mg 07/28/24 21:40 Ondansetron Inj 2 Mg/Ml Inj 2 Ml IV 08/27/24 21:39 Q4HR PRN NAUSEA OR VOMITING Plan 53-year-old male with past medical history of DM2 and hyperlipidemia was admitted to the hospital on 07/28/2024 for stroke rule out. #Stroke rule out #TIA versus stroke ?Patient initially came in with dizziness and left upper extremity pain and numbness. ?DDx TIA versus stroke ?NIHSS score 0 ? Head CT was negative ? Carotid Doppler study did not show any stenosis of right or left internal carotid ? Brain MRI did not show any acute infarcts ? Brain MRA did not show 3 mm focus restricted diffusion in the left frontal lobe, but teleneurology stated that both MRI and MRA were okay. ?Teleneuro consulted and advised to start DAPT for 21 days and monotherapy with plavix afterwards Plan: -Started DAPT -Echo pending ?Neurochecks every 4 hours ?Allow permissive hypertension ?Head of bed elevation to 30 degrees ?Aspiration precautions -Consult tele neurology, appreciate recommendations #Otitis media ?Patient was treated outpatient with antibiotic eardrops. Plan: ? Start Augmentin twice daily ? Continue ciprofloxacin eardrops ? Will continue to monitor #Hx of DM2 ?A1c was 6.5 Plan: ?ISS ?Accu-Cheks and hypoglycemia protocol ? Will continue to monitor #Hx of hyperlipidemia ?Continue atorvastatin 40 mg Disposition: Patient seen in telemetry. Diet: Carb consistent GI prophylaxis: not indicated DVT prophylaxis: lovenox Code: Full code Case disclosed with Attending Dr. Fraser and My senior Dr. Kraft PGY2. Omar Burleson PGY1 Attending Provider Attestation/Addendum I reviewed labs, imaging, EKG, home medications and prior available records. Face to face evaluation was performed by me. I have personally examined the patient and discussed assessment and plan with the IM team. I reviewed the resident note and agree with the plan with exceptions as below. Please see my addendum in the separate addendum note.
--- NOTE | 2024-07-29 11:02 | PD.TNEUROPRO ---
Tele Neuro Progress Note Progress Note Date 07/29/24 Most Recent Vital Signs Last Vital Signs Temp 97.4 F 07/29/24 08:00 Pulse 89 07/29/24 08:00 Resp 17 07/29/24 08:00 BP 145/84 H 07/29/24 08:00 Pulse Ox 97 07/29/24 08:00 O2 Del Method Room Air 07/29/24 04:00 Laboratory-Coagulation Panel PT 10.7 Seconds (9.0-12.2) 07/28/24 19:13 INR 1.0 (0.9-1.3) 07/28/24 19:13 APTT 24.5 Seconds (22.0-36.0) 07/28/24 19:13 Progress Note Narrative [facility] TeleNeurology Consult Services Routine Consult Follow-Up Patient Name:???Benji Becker Date of :???1970 Identification Number:??? Date of Service:???07/29/2024 09:50:32 Diagnosis?G45.9 - Transient cerebral ischemic attack, unspecified ?R51.9 - Headache, unspecified Impression Mr. Becker had left arm numbness with vascular risk factors of DM and HLD. Most of the other symptoms seem more related to his ear infection and pain. MRI/MRA looks ok at this point. Echocardiogram ordered as well. If this looks fine, would recommend outpatient Neurology f/u for evaluation of TIA and ENT for his ear. Also: Goal LDL <70. Please use high-intensity statin. Goal A1c <6.5. Please treat if necessary. Smoking cessation if necessary. Goal BP between 120-140 with diastolic less than 100. Aspirin 81 mg daily and Plavix 75 mg daily x 21 days then monotherapy with Plavix 75 mg daily after denys. Otherwise, no further recs. I will sign off. Call with questions. Our recommendations are outlined below Dispositions :No further recommendationsOutpatient Neurology follow up in 3-6 weeks Subjective The patient is doing well at this point. He denies any major issues or complaints at this point. Examination BP(145/84),?Pulse(78),?Temp(97.6),?Resp(15), 1A: Level of Consciousness - Alert; keenly responsive?+ 0 1B: Ask Month and Age - Both Questions Right?+ 0 1C: Blink Eyes & Squeeze Hands - Performs Both Tasks?+ 0 2: Test Horizontal Extraocular Movements - Normal?+ 0 3: Test Visual Sy - No Visual Loss?+ 0 4: Test Facial Palsy (Use Grimace if Obtunded) - Normal symmetry?+ 0 5A: Test Left Arm Motor Drift - No Drift for 10 Seconds?+ 0 5B: Test Right Arm Motor Drift - No Drift for 10 Seconds?+ 0 6A: Test Left Leg Motor Drift - No Drift for 5 Seconds?+ 0 6B: Test Right Leg Motor Drift - No Drift for 5 Seconds?+ 0 7: Test Limb Ataxia (FNF/Heel-Villatoro) - No Ataxia?+ 0 8: Test Sensation - Normal; No sensory loss?+ 0 9: Test Language/Aphasia - Normal; No aphasia?+ 0 10: Test Dysarthria - Normal?+ 0 11: Test Extinction/Inattention - No abnormality?+ 0 NIHSS Score:?0 This consult was conducted in real time using interactive audio and video technology. Patient was informed of the technology being used for this visit and agreed to proceed. Patient located in hospital and provider located at home/office setting. Telehealth Neurology consultation was provided. I spent 15 minutes providing telehealth care. This includes time spent for face to face visit via telemedicine, review of medical records, imaging studies and discussion of findings with providers, the patient and/or family. Dr Castro Leyva [facility] For Inpatient follow-up with [facility] physician please call [facility] at . As we are not an outpatient service for any post hospital discharge needs please contact the hospital for assistance. If you have any questions for the [facility] physicians or need to reconsult for clinical or diagnostic changes please contact us via [facility] at
[2024-07-29 11:24] LABS: Vitamin B12 426 pg/mL (211-911)
[2024-07-29 12:00] VITALS: BP 131/90; PULSE 75; PULSE 90; RESP 18; TEMP 36.2; O2SAT 99
[2024-07-29] MEDS: LORazepam 2 MG/ML VIAL 0.5 MG IVP (12:38)
--- NOTE | 2024-07-29 13:07 | PD.ADDPROG ---
Addendum Progress Note Addendum Date of report being addended: 07/29/24 Narrative: Attending's attestation: I reviewed labs, imaging, EKG, home medications and prior available records. Face to face evaluation was performed by me. I have personally examined the patient and discussed assessment and plan with the IM team. I reviewed the resident note and agree with the plan with exceptions as below. CVA symptoms: Improving. Continue aspirin and atorvastatin. Initially patient was unable to undergo the MRI due to anxiety. Will give Ativan low-dose and reattempt. Follow-up echocardiogram. Follow-up PT evaluation. Inpatient neurology consulted. Appreciate recommendations. Acute otitis media: Started the patient on Augmentin. Hypertension: Currently BP is within acceptable range.
--- NOTE | 2024-07-29 14:58 | PC.SS ---
Rounding note; Patient is still getting stroke workup.
[2024-07-29 16:00] VITALS: BP 132/89; PULSE 78; RESP 17; TEMP 36; O2SAT 98
[2024-07-29 20:00] VITALS: BP 127/85; PULSE 74; PULSE 84; RESP 18; TEMP 36.2; O2SAT 95
[2024-07-29] MEDS: ATORVASTATIN CALCIUM 20 MG TABLET 80 MG PO (20:03)
[2024-07-29] MEDS: INSULIN HUM REGULAR 1 UNIT/0.01 ML (PER UNIT) SC (20:04)
[2024-07-29] MEDS: AMOXICILLIN/POT CLAV 875 TABLET 1 TAB PO (20:04)
[2024-07-30] VITALS: BP 131/89; PULSE 69; PULSE 76; RESP 19; TEMP 36.4; O2SAT 96
[2024-07-30 04:00] VITALS: BP 116/88; PULSE 76; PULSE 77; RESP 14; TEMP 36.1; O2SAT 97
[2024-07-30 05:58] LABS: Basophils % (Auto) 0 % (0-2.5); Eosinophils # (Auto) 0.1 Thou/mm3 (0.0-0.5); Eosinophils % (Auto) 2 % (0-10); Hematocrit 47.4 % (41.0-53.0); Hemoglobin 16.4 g/dL (13.5-16.0); Immature Granulocytes % (Auto) 0 % (0-0); Immature Granulocytes Auto 0.01 Thou/mm3 (0.00-0.00); Lymphocytes # (Auto) 1.8 Thou/mm3 (1.0-4.8); Lymphocytes % (Auto) 29 % (10-50); Mean Corpuscular HGB Conc 34.6 g/dl (31.0-37.0); Mean Corpuscular Hemoglobin 31.7 pg (25.0-35.0); Mean Corpuscular Volume 92 fL (80-100); Monocytes # (Auto) 0.5 Thou/mm3 (0.0-0.8); Monocytes % (Auto) 8 % (0-12); Neutrophils # (Auto) 3.7 Thou/mm3 (1.8-7.7); Neutrophils % (Auto) 61 % (37-80); Nucleated Red Blood Cell % 0 /100 WBC (0); Platelet Count 267 Thou/mm3 (140-440); RDW Standard Deviation 43.7 fL (35.1-43.9); Red Blood Count 5.18 Miln/mm3 (4.50-5.90); White Blood Count 6.1 Thou/mm3 (3.8-10.6)
[2024-07-30 06:37] LABS: Anion Gap 6 (7-16); BUN/Creatinine Ratio 14 Ratio (12-20); Blood Urea Nitrogen 15 mg/dL (9-23); Calcium 9.8 mg/dL (8.3-10.6); Carbon Dioxide 26.9 mMol/L (20.0-31.0); Chloride 104 mMol/L (98-107); Creatinine (Component) 1.1 mg/dL (0.6-1.3); Estimated Creatinine Clearance 68.3 mL/min (>60); Glucose 108 mg/dL (74-106); Osmolality,Calculated 275 (275-295); Potassium 5.3 mMol/L (3.4-5.1); Sodium 137 mMol/L (136-145); eGFR > 60 See Note
[2024-07-30 08:00] VITALS: BP 130/87; PULSE 119; PULSE 77; RESP 24; TEMP 36.3; O2SAT 99
[2024-07-30] MEDS: ENOXAPARIN SOD INJ 40 MG/0.4 ML SYRINGE SC (08:15)
[2024-07-30] MEDS: CLOPIDOGREL BISULFATE 75 MG TABLET PO (08:15)
[2024-07-30] MEDS: SOD POLYSTYRENE SULFON SUSP 15 GM/60 ML BTL PO (08:15)
[2024-07-30] MEDS: ASPIRIN EC 81 MG TABEC PO (08:15)
[2024-07-30] MEDS: AMOXICILLIN/POT CLAV 875 TABLET 1 TAB PO (08:15)
[2024-07-30] MEDS: CIPROFLOXACIN/DEXAM OTIC SOL 7.5 ML BTL 3 DROP LEFT EAR (08:15)
--- NOTE | 2024-07-30 11:17 | ESDS_ITS ---
Planned Discharge Date 07/30/24 DS: Providers Provider Date of admission: 07/28/24 20:33 Primary care physician: Physician No Primary/Family Admitting Provider: Lopez Escalera MD Attending Provider on Admission: Santos Fraser MD Consults: 07/29/24 14:18 Referral Physical Therapy Routine Comment: Physician Instructions: Attending Provider on DC: Alberot Da Silva MD Discharging Provider: Alberto Da Silva MD DS: Diagnosis Problem List Completed Was Problem List Reviewed/Reconciled?: Yes Hospital Course Hospital Course Hospital course: 53-year-old male with past medical history of DM2 and hyperlipidemia was admitted to the hospital on 07/28/2024 for stroke rule out. In the ED patient presented with left upper extremity pain and numbness that started on the afternoon of same day as admission he also reports some dizziness. Initially came in hypertensive and afebrile. Initial labs were unremarkable. Initial imaging included head CT which was negative and carotid Doppler which did not show any stenosis of right or left internal carotids. Teleneurology did a initial consult and stated that patient's NIHSS was 0, therefore there was no need for tPA at this time. Patient was started on loading dose of aspirin 325 mg. MRI and MRA was done and showed 3 mm focus restricted diffusion in the left frontal lobe, but teleneurology did not concur with findings and stated that the MRI was okay and that the patient could be discharged home after echo came back with no abnormal findings and that the patient should continue on DAPT for 21 days and monotherapy with Plavix 75 mg daily after that. Second day of admission patient's potassium was elevated and per history gathering he mentioned that he normally eats a lot of potassium rich foods daily, he was counseled to cut back a little bit on these potassium rich foods and was given a one-time dose of Kayexalate. Patient's DAPT was started in the hospital and his echo did not show any evidence of PFO or ASD and showed an ejection fraction of 60-65%. Given the findings and following teleneurology recommendations patient is stable enough to be discharged home at this time. Discharge plan: Take Augmentin 1 tab twice daily for 10 days. Take aspirin 81 mg for 20 days. Start taking Plavix and Atorvastatin daily. Follow up with cardiology and PCP within 2 weeks. If you don't have a PCP, you can make an appointment at the [facility]: [address] [place] [address] Problem list: #Stroke rule out #TIA versus stroke #Otitis media #Hyperkalemia #Hx of DM2 #Hx of hyperlipidemia Case disclosed with Attending Dr. Da Silva and My senior Dr. Kraft PGY2. Omar Burleson PGY1 Status at Discharge Overall status at discharge: patient is progressing back to baseline Time Spent with Patient Time attestation: Total time spent providing and/or coordinating discharge services:>35 min Quality: Stroke Pt Provided Written Stroke Discharge Instructions: No (n/a) Exam Vital Signs Temp Pulse Resp BP Pulse Ox O2 Del Method 97.4 F 77 24 H 130/87 H 99 Room Air 07/30/24 08:00 07/30/24 08:00 07/30/24 08:00 07/30/24 08:00 07/30/24 08:00 07/29/24 20:00 Narrative Exam General: A/O x3, no acute distress, well-nourished, well-developed Eyes: PERRL, EOMI. Anicteric, vision grossly intact. Ears: No ear pain, no visible ear discharge, Hearing grossly intact. Nose: No nasal discharge. Mouth/Throat: Moist mucous membranes, no redness, no lesions. Neck: Neck supple, non-tender, no cervical lymphadenopathy. Lungs: Clear STACI to auscultation and percussion, No accessory muscle use. Cardio: Normal S1/S2, regular rhythm, no murmurs, no JVD Abdomen: Soft, non-tender, no palpable masses, peristalsis present, no guarding or rebound. Extremities: Symmetrical, no significant deformities, no peripheral edema , non-tender, peripheral pulses presents. Skin: No rashes, no lesions, warm to touch. Lump in L posterior head mildly tender Neuro: No focal neurological deficits. motor and sensory intact Psych: Cooperative, appropriate mood and effect. Discharge Plan Plan Patient Disposition: HOME (Self Care) Care Plan Goals: Take Augmentin 1 tab twice daily for 10 days. Take aspirin 81 mg for 20 days. Start taking Plavix and Atorvastatin daily. Follow up with cardiology and PCP within 2 weeks. If you don't have a PCP, you can make an appointment at the [facility]: [address] [place] [address] Prescriptions/Referrals Prescriptions/Med Rec: New atorvastatin 40 mg tablet 40 mg PO QPM Qty: 30 2RF clopidogrel [Plavix] 75 mg tablet 75 mg PO QDAY Qty: 30 2RF Referrals: No Primary/Family,Physician [Primary Care Provider] - Patient/Caregiver Discharge Instructions Print Language: Thai Stand Alone Forms: Jeanine Award Info., Patient Portal Info Letter Discharge Order Discharge Orders: Discharge (Routine); Ordered 07/30/24 Ordered By: Johnathan Kraft Quality Discharge Quality Measures VTE prophylaxis Attestestation Attestation I discussed with and supervised the resident physician who took care of this patient. I agree with the assessment and discharge plan as above Return to the emergency room or contact PCP for recurrent symptoms Risks for noncompliance discussed with the patient.
[2024-07-30 12:00] VITALS: PULSE 81
[2024-07-30 15:49] VITALS: BP 137/95; PULSE 80; RESP 24; TEMP 36.1; O2SAT 98
== END 2024-07-30 15:44 | disposition home or self-care (01) | DRG 47 ==
LOC: SERX 21:43 → SERHOLD 21:44 → S2NX 22:34
PROVIDERS: Physician Assistant; Admitting Provider Internal Medicine; Emergency Provider Emergency Medicine; Visit Provider Internal Medicine
DX: G45.9 Transient cerebral ischemic attack, unspecified (principal); R53.1 Weakness; E11.9 Type 2 diabetes mellitus without complications; E78.5 Hyperlipidemia, unspecified; H53.8 Other visual disturbances; I10 Essential (primary) hypertension; H66.92 Otitis media, unspecified, left ear; E87.5 Hyperkalemia
CPT/HCPCS: 36415; 70450; 70544; 80048; 80053; 80061; 80307; 80320; 81001; 82607; 83036; 83735; 84484; 85025; 85610; 85730; 87077; 87086; 87186; 92610; 93005; 93306; 93880; 97162; 99285; J1650; J1815; J2060; A9270; G0480